=== PATIENT | male | born 1980 | race Caucasian/White ===

== ENCOUNTER 2018-08-25 03:51 | Emergency (ER) | payer OTHER ==
[2018-08-25] MEDS: METHYLPREDNISOLONE 125 MG INJ IV (04:57)
[2018-08-25] MEDS: DIPHENHYDRAMINE 50 MG INJ IV (04:57)
[2018-08-25] MEDS: FAMOTIDINE 20 MG INJ IV (04:57)
[2018-08-25] MEDS: ONDANSETRON 4 MG INJ IV (04:57)
[2018-08-25] MEDS: SOD CHLORIDE 0.9% 1,000 ML IV (04:58)
[2018-08-25 05:28] LABS: ADD UMIC YES; UR ASCORBIC ACID 20 mg/dL (NEGATIVE); UR BILIRUBIN (Dip) NEGATIVE (NEGATIVE); UR BLOOD (Dip) 2+ mg/dL (NEGATIVE); UR CLARITY SLIGHTLY CLOUDY (CLEAR); UR COLOR YELLOW (YELLOW); UR GLUCOSE (Dip) NEGATIVE (NEGATIVE); UR KETONES (Dip) 2+ mg/dL (NEGATIVE); UR LEUKOCYTE ESTERASE (Dip) NEGATIVE Leu/ul (NEGATIVE); UR MUCUS FEW /HPF (NONE SEEN); UR NITRITE (Dip) NEGATIVE (NEGATIVE); UR RBC 12 /HPF (0-5); UR SQUAMOUS EPITHELIAL CELL FEW /HPF (FEW); UR TOTAL PROTEIN (Dip) 3+ mg/dl (NEGATIVE); UR UROBILINOGEN (Dip) NEGATIVE (NEGATIVE); UR WBC 1 /HPF (0-5)
== END 2018-08-25 06:07 | disposition home or self-care (01) ==
LOC: E/R 03:51
DX: R21 Rash and other nonspecific skin eruption (principal)
CPT/HCPCS: 71045; 81001; 96374; 96375; 99284-25